=== PATIENT | female | born 1960 | race Caucasian/White ===

== ENCOUNTER 2024-11-15 12:49 | Emergency (ER) | payer BC, SELFPAY ==
[2024-11-15 13:01] VITALS: BP 135/68
[2024-11-15 13:41] LABS: ALT (SGPT) 18 U/L (0-35); AST (SGOT) 22 U/L (14-36); Albumin 4.2 g/dl (3.5-5.0); Alkaline Phosphatase 53 U/L (38-126); Blood Urea Nitrogen 11 mg/dl (7-17); Calcium 9.3 mg/dl (8.4-10.2); Carbon Dioxide 25 mmol/L (22-30); Chloride 103 mmol/L (98-107); Glucose 93 mg/dl (70-99); Potassium 4.3 mmol/L (3.5-5.1); Sodium 137 mmol/L (135-145); Total Bilirubin 0.8 mg/dl (0.2-1.3); Total Protein 6.6 g/dl (6.3-8.2); eGFR > 60.00
[2024-11-15 13:44] LABS: INR 0.95
[2024-11-15 13:45] LABS: APTT 24.4 Sec (23.4-35.0)
[2024-11-15 15:27] LABS: % Basophils 0.4 % (0-2); % Eosinophils 3.9 % (0-6); % Immature Granulocytes 0.4 % (0-0.5); % Lymphocytes 19.4 % (20.5-51.1); % Monocytes 11.7 % (1.7-9.3); % Neutrophils 64.2 % (42.2-75.2); Absolute Eosinophils 0.2 10^3/uL (0-0.7); Absolute Lymphocytes 1.1 10^3/uL (1.2-3.4); Absolute Monocytes 0.7 10^3/uL (0.1-0.6); Absolute Neutrophils 3.6 10^3/uL (1.4-6.5); Hematocrit 28.3 % (37.0-47.0); Mean Corp Hgb Conc. 28.3 g/dL (33.0-37.0); Mean Corpuscular Volume 67.2 fL (81.0-99.0); Mean Platelet Volume 10.1 fL (7.4-10.4); Nucleated Red Blood Cells % 0 %; Platelet Count 335 10^3/uL (130-400); Red Blood Cell Count 4.21 10^6/uL (4.20-5.40); Red Cell Dist. Width 16.9 % (11.5-14.5); White Blood Cell Count 5.6 10^3/uL (4.8-10.8)
[2024-11-15 16:00] VITALS: BP 132/84
[2024-11-15 16:38] LABS: COVID-19 Antigen Negative (Negative)
--- NOTE | 2024-11-24 07:21 | ED.GENMED ---
History of Present Illness
General
Chief Complaint: Dizziness
Source: patient
Exam Limitations: none
Time Seen by Provider: 11/15/24 15:08
History of Present Illness
History of Present Illness:
63-year-old female presents emergency department due to shortness of breath for a few days and increased fatigue. She has been coughing as well. She is concerned as she has a history of anemia. Her hemoglobin came back at 7.9 when she had blood
work done yesterday.
Past History
Past History
ED Past Medical History: Asthma, COPD, Hypothyroidism and Other (Eczema, Hiatal hernia, Anemia)
ED Past Surgical History: Appendectomy and
Social History
Tobacco: Former smoker
Alcohol: None
Drug: None
Personal:
Living: with family
Employment: Employed
Review of Systems
Review of Systems
Allergies reviewed?: Yes
All Other Systems: Not applicable
Constitutional: Reports fatigue
EENT: Reports no symptoms
Respiratory: Reports cough and trouble breathing
Cardiac: Reports no symptoms
ABD/GI: Reports no symptoms
: Reports no symptoms
Musculoskeletal: Reports no symptoms
Skin: Reports no symptoms
Neurological: Reports dizzy
Endocrine: Reports no symptoms
Hematologic/Lymphatic: Reports no symptoms
Psychiatric: Reports no symptoms
Phy Exam
Physical Exam
Physical Exam:
Physical Exam
General: no apparent distress, not acutely ill
Neck: supple. no meningeal signs. normal posterior pharynx
Heart: s1/s2 regular rate and rhythm, no murmur. equal radial
pulses.
HEENT: Pupils equal round reactive to light, EOMI
Lungs: no acute respiratory distress. clear bilaterally
Abdomen: normal bowel sounds. not tender. no CVAT
Neuro: alert and oriented. no focal neurological deficits cranial nerves II through XII intact
Skin: no rash
Psychiatric: well kept. interactive and cooperative
Extremities: no edema. no calf tenderness. negative homans. good distal pulses
Course
Orders/Labs/Results
Orders:
Orders
11/15/24 12:51
EKG [Electrocardiogram (*1)] Urgent
Reason for Study: Vertigo / Dizzy
EKG- Treatment ONCE
11/15/24 13:15
Type+Screen Urgent
Complete Blood Count/With Diff Urgent
Comprehensive Metabolic Panel Urgent
PTT Urgent
Prothrombin Time Urgent
11/15/24 15:17
CR Chest - 2 Views Urgent
Comment:
Reason For Exam: cough, short of breath
11/15/24 16:08
COVID-19 Antigen Urgent
Source: Nasal Swab
Influenza A+B Rapid Molecular Urgent
TICO Source: Nasal Swab
Specimen Description:
Abnormal Lab Results
11/15/24
13:15
Hgb 8.0 L g/dL
(12.0-16.0)
Hct 28.3 L %
(37.0-47.0)
MCV 67.2 L fL
(81.0-99.0)
MCH 19.0 L pg
(27.0-31.0)
MCHC 28.3 L g/dL
(33.0-37.0)
RDW 16.9 H %
(11.5-14.5)
Absolute Lymphs (auto) 1.1 L 10^3/uL
(1.2-3.4)
Absolute Monos (auto) 0.7 H 10^3/uL
(0.1-0.6)
Lymphocytes % 19.4 L %
(20.5-51.1)
Monocytes % 11.7 H %
(1.7-9.3)
Creatinine 0.5 L mg/dL
(0.6-1.0)
11/15/24 13:15
11/15/24 13:15
Vital Signs
Initial and Last Documented VS:
Initial Vital Signs
Temp Pulse Resp BP Pulse Ox
98.8 F 77 16 135/68 100
11/15/24 13:01 11/15/24 13:01 11/15/24 13:01 11/15/24 13:01 11/15/24 13:01
Last Documented Vital Signs
Temp Pulse Resp BP Pulse Ox
98.8 F 79 20 132/84 99
11/15/24 13:01 11/15/24 16:00 11/15/24 16:00 11/15/24 16:00 11/15/24 16:00
MDM/Problems Addressed
Differential Diagnosis Includes:
Anemia, GI bleed, pneumonia
MDM/Problems Addressed:
63-year-old female with fatigue, likely due to URI. Hemoglobin stable at 8.0.
Chronic conditions affecting care: COPD, Asthma and Other (Anemia)
*Radiology
Radiology exam reviewed: radiology read reviewed (Chest x-ray no acute findings)
*Pulse Oximetry
Patient hypoxic: no
*EKG
Interpreted by ED Provider?: Yes
EKG Intrepretation Date: 11/15/24
EKG Intrepretation Time: 13:18
Interpretation: normal
Comparison EKG: no changes
Heart Rate: 60
Rate: normal
Rhythm: sinus
[place]: normal axis
Interval: normal interval
QRS Pattern: normal QRS
Ischemia: no ischemia
*Hot Man Interpretation
Rate: normal
Interpretation: normal
Heart Rate: 62
Rhythm: sinus
*Critical Care Note
Total Time (30-74mins, 75-104mins- exclusive of procedures): Not Applicable
Data Reviewed
Review of Other/Old Records Reveals: Labs (HB 7.8 yesterday)
Source: patient and records
Patient Management
Social determinants of health affecting care: Living situation and Strong social support
Escalation/DeEscalation of care consider admission/obs:
admit not indicated
ED Attending Note
-
Portions of this chart may have been created with voice recognition software.� Occasional wrong word or��sound alike� substitutions may have occurred due to the inherent limitations of voice recognition software.
Discharge Plan
Departure
Patient Disposition: Home (Routine Discharge)
Date of Disposition: 11/15/24
Time of Disposition: 16:51
Patient with high blood pressure during this ER visit?: Yes
Condition: Good
Discharge Problem:
Iron deficiency anemia, unspecified, URI (upper respiratory infection)
Instructions: Anemia caused by low iron, Acute bronchitis in adults, BLOOD PRESSURE
Prescriptions:
No Action
cetirizine 10 MG tablet
10 mg PO DAILY
levothyroxine 100 MCG tablet
100 mcg PO DAILY
docosahexaenoic acid-epa 1 CAP capsule
2 cap PO DAILY
cholecalciferol (vitamin D3) 2,000 UNIT tablet
2,000 unit PO DAILY
ferrous sulfate [Iron (ferrous sulfate)] 325 MG tablet
325 mg PO TID 30 Days Qty: 90 0RF
docusate sodium 100 MG capsule
100 mg PO BID 30 Days Qty: 60 0RF
Referrals:
Rebeca Leach CRNP [Family Provider] - Call in 1-3 days for appt
Activity Restrictions/Additional Instructions:
Follow up with hematology in 1-2 weeks.
Interventions
Interventions:
*Risk Screen - Suicide Last Done: 11/15/24 13:01
*General Assessment Last Done: 11/15/24 13:01
*Neglect/Abuse Screening Last Done: 11/15/24 13:01
*ED COVID-19 Vaccine History Last Done: 11/15/24 16:00
*Nursing Disposition Last Done: 11/15/24 17:33
ED- Neurological Assessment Last Done: 11/15/24 16:00
Discharge Date and Time
Discharge Date/Time: 11/15/24 17:33
Print Language: VINCENTIAN
== END 2024-11-15 17:33 | disposition home or self-care (01) ==
LOC: EMR 12:49
PROVIDERS: Emergency Medicine; EMERGENCY PHYSICIAN Emergency Medicine; FAMILY PHYSICIAN Nurse Practitioner Adult Health
DX: D50.9 Iron deficiency anemia, unspecified (principal); J06.9 Acute upper respiratory infection, unspecified; J45.909 Unspecified asthma, uncomplicated; E03.9 Hypothyroidism, unspecified; Z90.49 Acquired absence of other specified parts of digestive tract; Z87.891 Personal history of nicotine dependence
CPT/HCPCS: 99285; 71046; 80053; 85025; 85610; 85730; 86850; 86900; 86901; 87502; 87811; 93005

== ENCOUNTER → 2024-12-29 16:28 | Outpatient (REF) | payer BC, SELFPAY ==
[2024-12-29 15:16] LABS: % Basophils 0.5 % (0-2); % Eosinophils 4.4 % (0-6); % Immature Granulocytes 0.3 % (0-0.5); % Lymphocytes 18.1 % (20.5-51.1); % Monocytes 11.4 % (1.7-9.3); % Neutrophils 65.3 % (42.2-75.2); Absolute Eosinophils 0.3 10^3/uL (0-0.7); Absolute Lymphocytes 1.2 10^3/uL (1.2-3.4); Absolute Monocytes 0.7 10^3/uL (0.1-0.6); Absolute Neutrophils 4.2 10^3/uL (1.4-6.5); Hematocrit 24.6 % (37.0-47.0); Mean Corp Hgb Conc. 27.6 g/dL (33.0-37.0); Mean Corpuscular Hgb 17.6 pg (27.0-31.0); Mean Corpuscular Volume 63.7 fL (81.0-99.0); Mean Platelet Volume 9.9 fL (7.4-10.4); Platelet Count 425 10^3/uL (130-400); Red Blood Cell Count 3.86 10^6/uL (4.20-5.40); White Blood Cell Count 6.4 10^3/uL (4.8-10.8)
[2024-12-29 15:24] LABS: Hemoglobin 6.8 g/dL (12.0-16.0)
== END ==
LOC: OIDL 16:28
PROVIDERS: ATTENDING PHYSICIAN Internal Medicine Hematology & Oncology
DX: D50.0 Iron deficiency anemia secondary to blood loss (chronic) (principal)
CPT/HCPCS: 85025

== ENCOUNTER 2024-12-30 08:27 | Emergency (ER) | payer BC, SELFPAY ==
[2024-12-30] VITALS (16 sets, daily range): BP systolic 116–141; BP diastolic 60–105; BMI 27.4
[2024-12-30 09:27] LABS: % Basophils 0.4 % (0-2); % Eosinophils 3.6 % (0-6); % Immature Granulocytes 3.1 % (0-0.5); % Lymphocytes 11.3 % (20.5-51.1); % Monocytes 11.6 % (1.7-9.3); Absolute Eosinophils 0.3 10^3/uL (0-0.7); Absolute Immature Granulocytes 0.2 10^3/uL (0-0.05); Absolute Lymphocytes 0.8 10^3/uL (1.2-3.4); Absolute Monocytes 0.8 10^3/uL (0.1-0.6); Hematocrit 24.9 % (37.0-47.0); Hemoglobin 6.8 g/dL (12.0-16.0); Mean Corp Hgb Conc. 27.3 g/dL (33.0-37.0); Mean Corpuscular Hgb 17.7 pg (27.0-31.0); Mean Corpuscular Volume 64.7 fL (81.0-99.0); Mean Platelet Volume 9.9 fL (7.4-10.4); Nucleated Red Blood Cells % 0.3 %; Platelet Count 379 10^3/uL (130-400); Red Blood Cell Count 3.85 10^6/uL (4.20-5.40); Red Cell Dist. Width 18.6 % (11.5-14.5); White Blood Cell Count 7.2 10^3/uL (4.8-10.8)
[2024-12-30 09:31] LABS: ALT (SGPT) 17 U/L (0-35); AST (SGOT) 19 U/L (14-36); Albumin 3.9 g/dl (3.5-5.0); Alkaline Phosphatase 52 U/L (38-126); Blood Urea Nitrogen 10 mg/dl (7-17); Calcium 9.3 mg/dl (8.4-10.2); Carbon Dioxide 27 mmol/L (22-30); Chloride 105 mmol/L (98-107); Estimated Creatinine Clearance 98 ml/min; Glucose 101 mg/dl (70-99); Potassium 3.9 mmol/L (3.5-5.1); Sodium 137 mmol/L (135-145); Total Bilirubin 0.7 mg/dl (0.2-1.3); Total Protein 6.3 g/dl (6.3-8.2); eGFR > 60.00
--- NOTE | 2024-12-30 10:38 | ED.GENMED ---
History of Present Illness
General
Chief Complaint: Abnormal Lab Value
Source: patient and records
Exam Limitations: none
Time Seen by Provider: 12/30/24 08:58
Nursing documentation reviewed up to this point in time: agreed with
History of Present Illness
History of Present Illness:
64-year-old female referred to the ER for blood transfusion she has a history of iron deficiency anemia for several years has seen GI gynecology urology PCP and hematology, had upper and lower endoscopy, told she might need a capsule endoscopy, she
has no vaginal bleeding, she feels weak and dizzy denies any rectal or vaginal bleeding, she had an iron transfusion yesterday had blood work showed anemia apparently did not tolerate p.o. iron
Past History
Past History
ED Past Medical History: Asthma, COPD, Hypothyroidism and Other (Eczema, Hiatal hernia, Anemia extensive workup)
ED Past Surgical History: Appendectomy and
Social History
Tobacco: Former smoker
Alcohol: None
Drug: None
Personal:
Living: with family
Employment: Employed
Review of Systems
Review of Systems
All Other Systems: Not applicable
Constitutional: Reports fatigue
Respiratory: Reports no symptoms
Cardiac: Reports no symptoms
ABD/GI: Reports no symptoms; Denies bloody stools or black stools
: Reports no symptoms; Denies bleeding
Neurological: Reports dizzy and weakness
Hematologic/Lymphatic: Reports no symptoms; Denies bleeding or bruising
Phy Exam
Physical Exam
Physical Exam:
Physical Exam
General: no apparent distress, not acutely ill
Neck: Slightly
Heart: s1/s2 regular rate and rhythm, no murmur. equal radial pulses.
Lungs: no acute respiratory distress. clear bilaterally
Neuro: alert and oriented. no focal neurological deficits
Skin: no rash
Psychiatric: well kept. interactive and cooperative
Extremities: no edema.
Course
Orders/Labs/Results
Orders:
Orders
12/30/24 09:10
Type+Screen Urgent
Complete Blood Count/With Diff Urgent
Comprehensive Metabolic Panel Urgent
12/30/24 09:55
Blood Bank Products [* Blood Bank Products] Urgent
Blood Bank Products: *Packed RBC Leuko(PRBC's)
Quantity: 2
Transfuse Today: Yes
Reason: Anemia
Abnormal Lab Results
12/30/24
09:10
RBC 3.85 L 10^6/uL
(4.20-5.40)
Hgb 6.8 L* g/dL
(12.0-16.0)
Hct 24.9 L %
(37.0-47.0)
MCV 64.7 L fL
(81.0-99.0)
MCH 17.7 L pg
(27.0-31.0)
MCHC 27.3 L g/dL
(33.0-37.0)
RDW 18.6 H %
(11.5-14.5)
Abs Immat Gran (auto) 0.2 H 10^3/uL
(0-0.05)
Absolute Lymphs (auto) 0.8 L 10^3/uL
(1.2-3.4)
Absolute Monos (auto) 0.8 H 10^3/uL
(0.1-0.6)
Immature Gran % 3.1 H %
(0-0.5)
Lymphocytes % 11.3 L %
(20.5-51.1)
Monocytes % 11.6 H %
(1.7-9.3)
Creatinine 0.5 L mg/dL
(0.6-1.0)
Glucose 101 H mg/dl
(70-99)
Crossmatch IS Only See Detail
12/30/24 09:10
12/30/24 09:10
Vital Signs
Initial and Last Documented VS:
Initial Vital Signs
Temp Pulse Resp BP Pulse Ox
97.5 F 83 18 141/60 100
12/30/24 08:37 12/30/24 08:37 12/30/24 08:37 12/30/24 08:37 12/30/24 08:37
Last Documented Vital Signs
Temp Pulse Resp BP Pulse Ox
98.1 F 72 27 137/70 98
12/30/24 10:41 12/30/24 10:41 12/30/24 10:41 12/30/24 10:41 12/30/24 10:41
MDM/Problems Addressed
Differential Diagnosis Includes:
Anemia
MDM/Problems Addressed:
Acute on chronic anemia
Chronic conditions affecting care:
Anemia
Acute Exacerbation and/or Progression of Chronic Illness:
Anemia
*Pulse Oximetry
Patient hypoxic: no
*Supervisor Forming Department Interpretation
Rate: normal
Interpretation: normal
Heart Rate: 78
Rhythm: sinus
*Critical Care Note
Total Time (30-74mins, 75-104mins- exclusive of procedures): Not Applicable
Update Note
Update Note:
Update vital signs stable hemoglobin low but stable patient denies any bloody stools black stools denies any vaginal bleeding had a fairly extensive workup seen by GI gynecology hematology does have microcytic indices, started on iron yesterday will
transfuse here with an eye towards discharge to home
ED Attending Note
-
Portions of this chart may have been created with voice recognition software.� Occasional wrong word or��sound alike� substitutions may have occurred due to the inherent limitations of voice recognition software.
Discharge Plan
Departure
Prescriptions:
No Action
cetirizine 10 MG tablet
10 mg PO DAILY
levothyroxine 100 MCG tablet
100 mcg PO DAILY
docosahexaenoic acid-epa 1 CAP capsule
2 cap PO DAILY
cholecalciferol (vitamin D3) 2,000 UNIT tablet
2,000 unit PO DAILY
ferrous sulfate [Iron (ferrous sulfate)] 325 MG tablet
325 mg PO TID 30 Days Qty: 90 0RF
docusate sodium 100 MG capsule
100 mg PO BID 30 Days Qty: 60 0RF
Referrals:
Christina Maradiaga CRNP [Family Provider] -
Interventions
Interventions:
*Risk Screen - Suicide Last Done: 12/30/24 09:12
*General Assessment Last Done: 12/30/24 09:12
*Neglect/Abuse Screening Last Done: 12/30/24 09:12
*ED- Fall Risk Assessment Last Done: 12/30/24 09:12
*ED COVID-19 Vaccine History Last Done: 12/30/24 08:37
Discharge Date and Time
Print Language: MONGOLIAN
[2024-12-30 10:51] LABS: Anisocytosis 1+; Hypochromasia 2+; Macrocytosis Slight; Normal RBC Morphology No; Ovalocytes Slight
== END 2024-12-30 14:38 | disposition home or self-care (01) ==
LOC: EMR 08:27
PROVIDERS: EMERGENCY PHYSICIAN Emergency Medicine; FAMILY PHYSICIAN Nurse Practitioner Family
DX: D50.9 Iron deficiency anemia, unspecified (principal); Z87.891 Personal history of nicotine dependence
CPT/HCPCS: 99285; 36430; 80053; 85025; 86850; 86900; 86901; 86920; P9016

== ENCOUNTER → 2025-01-01 11:51 | Outpatient (REF) | payer BC, SELFPAY ==
[2025-01-01 11:53] LABS: % Basophils 0.3 % (0-2); % Immature Granulocytes 1.6 % (0-0.5); % Lymphocytes 13.7 % (20.5-51.1); % Monocytes 11.2 % (1.7-9.3); % Neutrophils 69.2 % (42.2-75.2); Absolute Eosinophils 0.3 10^3/uL (0-0.7); Absolute Immature Granulocytes 0.1 10^3/uL (0-0.05); Absolute Monocytes 0.8 10^3/uL (0.1-0.6); Absolute Neutrophils 5.2 10^3/uL (1.4-6.5); Hematocrit 32.4 % (37.0-47.0); Mean Corpuscular Hgb 20.3 pg (27.0-31.0); Mean Corpuscular Volume 70.1 fL (81.0-99.0); Mean Platelet Volume 10.1 fL (7.4-10.4); Platelet Count 379 10^3/uL (130-400); Red Blood Cell Count 4.62 10^6/uL (4.20-5.40); Red Cell Dist. Width 23.5 % (11.5-14.5); White Blood Cell Count 7.5 10^3/uL (4.8-10.8)
[2025-01-01 11:54] LABS: Hemoglobin 9.4 g/dL (12.0-16.0)
== END ==
LOC: OIDL 11:51
PROVIDERS: ATTENDING PHYSICIAN Internal Medicine Hematology & Oncology
DX: D50.0 Iron deficiency anemia secondary to blood loss (chronic) (principal)
CPT/HCPCS: 85025

== ENCOUNTER → 2025-01-08 09:33 | Outpatient (REF) | payer BC, SELFPAY ==
[2025-01-08 09:41] LABS: % Basophils 0.6 % (0-2); % Eosinophils 2.1 % (0-6); % Immature Granulocytes 1.7 % (0-0.5); % Neutrophils 69.6 % (42.2-75.2); Absolute Eosinophils 0.1 10^3/uL (0-0.7); Absolute Immature Granulocytes 0.1 10^3/uL (0-0.05); Absolute Monocytes 0.7 10^3/uL (0.1-0.6); Absolute Neutrophils 4.6 10^3/uL (1.4-6.5); Hematocrit 30.7 % (37.0-47.0); Mean Corp Hgb Conc. 29.3 g/dL (33.0-37.0); Mean Corpuscular Hgb 21.1 pg (27.0-31.0); Mean Corpuscular Volume 72.1 fL (81.0-99.0); Platelet Count 225 10^3/uL (130-400); Red Blood Cell Count 4.26 10^6/uL (4.20-5.40); Red Cell Dist. Width 27.2 % (11.5-14.5); White Blood Cell Count 6.5 10^3/uL (4.8-10.8)
== END ==
LOC: OIDL 09:33
PROVIDERS: ATTENDING PHYSICIAN Internal Medicine Hematology & Oncology
DX: D50.0 Iron deficiency anemia secondary to blood loss (chronic) (principal)
CPT/HCPCS: 85025

== ENCOUNTER → 2025-01-19 16:10 | Outpatient (REF) | payer BC, SELFPAY ==
[2025-01-19 14:53] LABS: % Basophils 0.9 % (0-2); % Eosinophils 4.1 % (0-6); % Lymphocytes 28.7 % (20.5-51.1); % Monocytes 9.1 % (1.7-9.3); % Neutrophils 57.2 % (42.2-75.2); Absolute Eosinophils 0.1 10^3/uL (0-0.7); Absolute Monocytes 0.3 10^3/uL (0.1-0.6); Hemoglobin 10.5 g/dL (12.0-16.0); Mean Corp Hgb Conc. 29.2 g/dL (33.0-37.0); Mean Corpuscular Hgb 22.1 pg (27.0-31.0); Mean Corpuscular Volume 75.6 fL (81.0-99.0); Mean Platelet Volume 9.7 fL (7.4-10.4); Platelet Count 252 10^3/uL (130-400); Red Blood Cell Count 4.76 10^6/uL (4.20-5.40); Red Cell Dist. Width 28.3 % (11.5-14.5); White Blood Cell Count 3.4 10^3/uL (4.8-10.8)
== END ==
LOC: OIDL 16:10
PROVIDERS: ATTENDING PHYSICIAN Registered Nurse
DX: D50.0 Iron deficiency anemia secondary to blood loss (chronic) (principal)
CPT/HCPCS: 85025

== ENCOUNTER → 2025-02-09 16:04 | Outpatient (REF) | payer BC, SELFPAY ==
[2025-02-09 15:16] LABS: % Basophils 0.5 % (0-2); % Eosinophils 5.6 % (0-6); % Lymphocytes 25.8 % (20.5-51.1); % Monocytes 7.7 % (1.7-9.3); % Neutrophils 60.4 % (42.2-75.2); Absolute Eosinophils 0.2 10^3/uL (0-0.7); Absolute Lymphocytes 1.1 10^3/uL (1.2-3.4); Absolute Monocytes 0.3 10^3/uL (0.1-0.6); Absolute Neutrophils 2.6 10^3/uL (1.4-6.5); Hematocrit 36.1 % (37.0-47.0); Hemoglobin 11.2 g/dL (12.0-16.0); Mean Corpuscular Hgb 23.5 pg (27.0-31.0); Mean Corpuscular Volume 75.8 fL (81.0-99.0); Mean Platelet Volume 9.6 fL (7.4-10.4); Platelet Count 238 10^3/uL (130-400); Red Blood Cell Count 4.76 10^6/uL (4.20-5.40); Red Cell Dist. Width 23.4 % (11.5-14.5); White Blood Cell Count 4.3 10^3/uL (4.8-10.8)
== END ==
LOC: OIDL 16:04
PROVIDERS: ATTENDING PHYSICIAN Registered Nurse
DX: D50.0 Iron deficiency anemia secondary to blood loss (chronic) (principal)
CPT/HCPCS: 85025